=== PATIENT | female | born 2000 | race Caucasian/White ===

== ENCOUNTER 2023-02-25 05:25 | Day surgery (SDC) | payer OTHER ==
[2023-02-19 12:08] VITALS: BMI 24.6
[2023-02-25 12:19] VITALS: BP 99/60; PULSE 58; RESP 18; TEMP 98
== END 2023-02-25 12:10 | disposition home or self-care (01) ==
LOC: JASU-ENDO 05:25
PROVIDERS: ATTEND Internal Medicine Gastroenterology
PROC: 0DJD8ZZ Inspection of Lower Intestinal Tract, Via Natural or Artificial Opening Endoscopic (ICD-10-PCS; principal; 2023-02-25 10:45)
DX: K64.8 Other hemorrhoids (principal); Z80.0 Family history of malignant neoplasm of digestive organs
CPT/HCPCS: 81025

== ENCOUNTER 2023-03-01 08:04 | Emergency (ER) | payer OTHER ==
[2023-03-01 08:17] VITALS: BP 116/83; PULSE 90; RESP 18; TEMP 98.5; BMI 24.4
[2023-03-01] MEDS ORDERED: AMOX TR/POT CLAV 875MG/125MG TABLETS (FP) PO ONE (09:14)
[2023-03-01] MEDS ORDERED: IBUPROFEN 400 MG TABLET (FP) PO ONE ×2 (09:14→09:22)
[2023-03-01] MEDS ORDERED: AMOX TR/POT CLAV 875MG/125MG TABLETS (FP) ONE (09:22)
== END 2023-03-01 09:37 | disposition home or self-care (01) ==
LOC: JERFT 08:04
DX: H92.03 Otalgia, bilateral (principal); R05.9 Cough, unspecified; R09.81 Nasal congestion; H66.93 Otitis media, unspecified, bilateral; J01.90 Acute sinusitis, unspecified; J06.9 Acute upper respiratory infection, unspecified
CPT/HCPCS: 99283-25